=== PATIENT | female | born 1965 | race Caucasian/White ===

== ENCOUNTER → 2016-11-19 | Outpatient (CLI) | payer MEDICARE ==
[~2016-11-19] MED LIST: ALDACTONE 25MG25 MG PO; AMITRIPTYLINE 225 MG PO; BISOPROLOL 5MG T5 MG PO; BYDUREON2 MG SC; COPAXONE20 MG/ML SC; CRESTOR40 MG PO; CYMBALTA60 MG PO; FUROSEMIDE 20MG20 MG FT; GILENYA0.5 MG PO; GLIMEPIRIDE 2MG2 MG PO; KOMBIGLYZE PO; LEVOTHYROXIN0.075 M1 PO; METFORMIN HCL1000 MG PO; METFORMIN500 MG PO; MODAFINIL200 MG PO; PROVIGIL200 MG PO; RANEXA1000 M2 PO; VERAPAMIL HYDR300 MG PO; VITAMIN B121000 MC2 SL; VITAMIN D1000 IU PO; XANAX 0.25MG0.25 MG PO; ZOFRAN ODT4 MG PO
[2016-11-19 09:36] LABS: HEMOGLOBIN 13.8 g/dL (12.2-16.2); LYMPH # 0.7 K/mm3 (0.7-4.5); LYMPH % 13.7 % (10-50.0)
[2016-11-19 10:44] LABS: BUN 13 mg/dL (7-18)
[2016-11-19 10:45] LABS: GFR (ESTIMATED) 76 ML/MIN (59-)
[2016-11-20 07:38] LABS: Vitamin D, 25-Hydroxy 74.8 ng/mL (30.0-100.0)
[2016-11-20 08:55] LABS: Vitamin B12 >2000 pg/mL (211-946)
== END ==
LOC: LAB 09:23
PROVIDERS: Psychiatry & Neurology Neurology
DX: E55.9 Vitamin D deficiency, unspecified (principal); R41.3 Other amnesia; E11.40 Type 2 diabetes mellitus with diabetic neuropathy, unspecified; G35 Multiple sclerosis; Z79.899 Other long term (current) drug therapy

== ENCOUNTER → 2017-03-23 | Outpatient (CLI) | payer MEDICARE ==
[2017-03-23 15:37] LABS: HEMOGLOBIN 12.9 g/dL (12.2-16.2); LYMPH # 0.9 K/mm3 (0.7-4.5); LYMPH % 17.8 % (10-50.0)
[2017-03-23 15:49] LABS: BUN 17 mg/dL (7-18)
[2017-03-23 16:08] LABS: GFR (ESTIMATED) 67 ML/MIN (59-)
== END ==
LOC: LAB 15:24
PROVIDERS: Surgery
DX: K43.9 Ventral hernia without obstruction or gangrene (principal); Z01.812 Encounter for preprocedural laboratory examination